=== PATIENT | female | born 1965 | race African-American/Black ===

== ENCOUNTER 2017-06-16 10:35 | Emergency (ER) | payer OTHER, MEDICAID ==
[~2017-06-16] VITALS: Ht 162.6 cm; Wt 49.1 kg
[~2017-06-16 10:35] MED LIST: ACET650T10 PR; ADAL30TA10 PO; ASPI81 PO; BACL20TA PO; CEFT1INJ IM; CYCL-36 PO; DIAZ5 PO; ENDO5TAB6 PO; FOLI1TAB PO; LORT7.5T3 PO; METH2.5 PO; METO50TA PO; PROC60TA PO; RANI150 PO; ROSU20 PO; STOO100C PO; VANC1CAP7 IV; ZOCO40TA PO
[2017-06-16 11:14] VITALS: BP 144/77; PULSE 87; RESP 16; TEMP 98.1; O2SAT 96
[2017-06-16 11:53] LABS: AUTOMATED NEUTROPHIL # 3.5 TH/MM3 (1.8-7.7); BASOPHIL % 0.4 % (0.0-2.0); EOSINOPHIL % 0.7 % (0.0-4.0); HEMATOCRIT 30.9 % (35.0-46.0); HEMOGLOBIN 10.2 GM/DL (11.6-15.3); LYMPH % 16.9 % (9.0-44.0); LYMPHOCYTE # 0.8 TH/MM3 (1.0-4.8); MEAN CELL VOLUME 91.3 FL (80.0-100.0); MEAN CORPUSCULAR HGB CONC 32.8 % (32.0-36.0); MEAN PLATELET VOLUME 10.1 FL (7.0-11.0); MONO % 7.5 % (0.0-8.0); MONOCYTE # 0.4 TH/MM3 (0-0.9); NEUT % 74.5 % (16.0-70.0); PLATELET COUNT 160 TH/MM3 (150-450); RED BLOOD COUNT 3.38 MIL/MM3 (4.00-5.30); RED CELL DISTRIBUTION WIDTH 14.5 % (11.6-17.2); WHITE BLOOD COUNT 4.7 TH/MM3 (4.0-11.0)
--- NOTE | 2017-06-16 12:00 | PD ---
HPI Chief Complaint: Medical Clearance Time Seen by Provider: 11:42 Travel History International Travel<30 days: No Contact w/Intl Traveler<30days: No Traveled to known affect area: No History of Present Illness HPI The patient is a 51-year-old after [place] female who presents emergency department for palpitations. The patient states they recently increased her Zoloft from 25 mg to 50 mg. She now complains of mild nausea with palpitations. The patient states she had palpitations on Friday, is currently asymptomatic. She does note a history of previous drug to drug interaction with an elevated heart rate requiring IV medications to slow her heart rate. She does have a history of lupus and scleroderma for which she takes Procardia. She denies any current chest pain or shortness of breath. The patient is currently under stress, is due to go to court today at 1:30 PM, her symptoms may be related. She denies any current nausea, vomiting, or abdominal pain today. PFSH Past Medical History Arthritis: Yes Asthma: No Autoimmune Disease: Yes (SCLERODERMA, REYNAUDS, LUPUS) Blood Disorders: No Anxiety: Yes Depression: Yes Heart Rhythm Problems: No Cancer: No Cardiovascular Problems: Yes Cerebral Palsy: Yes High Cholesterol: No Chemotherapy: No Chest Pain: No Congestive Heart Failure: No COPD: No Cerebrovascular Accident: No Diabetes: No Diminished Hearing: No Endocrine: No GERD: No Glaucoma: No Genitourinary: No Headaches: No Hepatitis: No Hiatal Hernia: No Hypertension: No Immune Disorder: Yes Kidney Stones: No Musculoskeletal: Yes Neurologic: No Psychiatric: Yes Reproductive: No Respiratory: No Integumentary: Yes (SCLERDERMA) Migraines: No Myocardial Infarction: No Radiation Therapy: No Renal Failure: No Seizures: No Sickle Cell Disease: No Sleep Apnea: No Thyroid Disease: No Ulcer: No Past Surgical History Abdominal Surgery: No AICD: No Appendectomy: No Arteriovenous Shunt: No Cardiac Surgery: No Cholecystectomy: No Ear Surgery: No Endocrine Surgery: No Eye Surgery: No Genitourinary Surgery: No Gynecologic Surgery: No Insulin Pump: No Joint Replacement: No Oral Surgery: No Pacemaker: No Thoracic Surgery: No Other Surgery: Yes Social History Alcohol Use: No Tobacco Use: No Substance Use: No Allergies-Medications (Allergen,Severity, Reaction): Coded Allergies: No Known Allergies (Verified Adverse Reaction, Unknown, 06/16/17) Reported Meds & Prescriptions Reported Meds & Active Scripts Active Reported Tylenol (Acetaminophen) 650 Mg Supp 650 Mg DC Q6HPRN Zocor (Simvastatin) 40 Mg Tab 40 Mg PO HS Flexeril (Cyclobenzaprine HCl) 10 Mg Tab 10 Mg PO TID Lopressor (Metoprolol Tartrate) 50 Mg Tab 50 Mg PO BID Colace (Docusate Sodium) 100 Mg Cap 100 Mg PO BID Vancomycin Hcl (Vancomycin HCl) 250 Mg Cap 1 Gm IV BID Rocephin 1000 MG (Ceftriaxone Sodium) 1,000 Mg Inj 1,000 Mg IM DAILY Endocet (Oxycodone/Acetaminophen) 5 Mg/325 Mg Tab 1 Tab PO Q4HPRN Lortab 7.5/500 (Acetaminophen/Hydrocodone Bitart) Tab 1 Tab PO Q6HPRN FOR PAIN Aspirin 81 Mg Tab 81 Mg PO DAILY Valium (Diazepam) 5 Mg Tab 5 Mg PO DAILY Adalat Cc (Nifedipine) 30 Mg Tab 30 Mg PO DAILY Lioresal (Baclofen) 20 Mg Tab 20 Mg PO BID Zantac (Ranitidine HCl) 150 Mg Tab 150 Mg PO BID Rheumatrex (Methotrexate) 2.5 Mg Tab 10 Mg PO WEEKLY Crestor (Rosuvastatin Calcium) 20 Mg Tab 20 Mg PO DAILY Folate (Folic Acid) 1 Mg Tab 1 Mg PO DAILY Procardia Xl (Nifedipine) 60 Mg Tabcr 60 Mg PO DAILY Review of Systems Except as stated in HPI: all other systems reviewed are Neg General / Constitutional: No: Fever HENT: No: Lightheadedness Cardiovascular: Positive: Palpitations, Tachycardia, No: Chest Pain or Discomfort, Syncope Respiratory: No: Shortness of Breath Gastrointestinal: Positive: Nausea (several days ago which has resolved), No: Vomiting, Abdominal Pain Musculoskeletal: No: Weakness Psychiatric: Positive: Anxiety Physical Exam Narrative GENERAL: Awake, alert, pleasant 51-year-old female who appears her stated age and is in no acute respiratory distress. SKIN: Focused skin assessment warm/dry. HEAD: Atraumatic. Normocephalic. EYES: No injection or drainage. ENT: No nasal bleeding or discharge. Mucous membranes pink and moist. NECK: Trachea midline. No JVD. CARDIOVASCULAR: Regular rate and rhythm. No murmur appreciated. Heart rate in the 80s. RESPIRATORY: No accessory muscle use. Clear to auscultation. Breath sounds equal bilaterally. GASTROINTESTINAL: Abdomen soft, non-tender, nondistended. Hepatic and splenic margins not palpable. MUSCULOSKELETAL: Partial amputations of the digit of the right hand. NEUROLOGICAL: Awake and alert. No obvious cranial nerve deficits. Motor grossly within normal limits. Normal speech. PSYCHIATRIC: Appropriate mood and affect; insight and judgment normal. Data Data Last Documented VS Vital Signs Date Time Temp Pulse Resp B/P (MAP) Pulse Ox O2 Delivery O2 Flow Rate FiO2 06/16/17 12:07 72 22 169/100 (123) 100 Room Air 06/16/17 11:14 98.1 Orders Orders Complete Blood Count With Diff (06/16/17 11:17) Comprehensive Metabolic Panel (06/16/17 11:17) Lipase (06/16/17 11:17) Electrocardiogram (06/16/17 ) Magnesium (Mg) (06/16/17 11:51) Summer Internship / Telemetry [id number] (06/16/17 11:51) Labs Laboratory Tests Test 06/16/17 11:25 White Blood Count 4.7 TH/MM3 Red Blood Count 3.38 MIL/MM3 Hemoglobin 10.2 GM/DL Hematocrit 30.9 % Mean Corpuscular Volume 91.3 FL Mean Corpuscular Hemoglobin 30.0 PG Mean Corpuscular Hemoglobin Concent 32.8 % Red Cell Distribution Width 14.5 % Platelet Count 160 TH/MM3 Mean Platelet Volume 10.1 FL Neutrophils (%) (Auto) 74.5 % Lymphocytes (%) (Auto) 16.9 % Monocytes (%) (Auto) 7.5 % Eosinophils (%) (Auto) 0.7 % Basophils (%) (Auto) 0.4 % Neutrophils # (Auto) 3.5 TH/MM3 Lymphocytes # (Auto) 0.8 TH/MM3 Monocytes # (Auto) 0.4 TH/MM3 Eosinophils # (Auto) 0.0 TH/MM3 Basophils # (Auto) 0.0 TH/MM3 CBC Comment DIFF FINAL Differential Comment Blood Urea Nitrogen 21 MG/DL Creatinine 1.04 MG/DL Random Glucose 79 MG/DL Total Protein 8.8 GM/DL Albumin 4.2 GM/DL Calcium Level 8.9 MG/DL Alkaline Phosphatase 65 U/L Aspartate Amino Transf (AST/SGOT) 17 U/L Alanine Aminotransferase (ALT/SGPT) 20 U/L Total Bilirubin 0.2 MG/DL Sodium Level 143 MEQ/L Potassium Level 3.6 MEQ/L Chloride Level 113 MEQ/L Carbon Dioxide Level 21.4 MEQ/L Anion Gap 9 MEQ/L Estimat Glomerular Filtration Rate 68 ML/MIN Magnesium Level 2.0 MG/DL Lipase 97 U/L [facility] Medical Decision Making Medical Screen Exam Complete: Yes Emergency Medical Condition: Yes Medical Record Reviewed: Yes Interpretation(s) EKG reveals normal sinus rhythm with a rate of 71. No ischemic changes or ectopy noted. Laboratory Tests Test 06/16/17 11:25 White Blood Count 4.7 TH/MM3 Red Blood Count 3.38 MIL/MM3 Hemoglobin 10.2 GM/DL Hematocrit 30.9 % Mean Corpuscular Volume 91.3 FL Mean Corpuscular Hemoglobin 30.0 PG Mean Corpuscular Hemoglobin Concent 32.8 % Red Cell Distribution Width 14.5 % Platelet Count 160 TH/MM3 Mean Platelet Volume 10.1 FL Neutrophils (%) (Auto) 74.5 % Lymphocytes (%) (Auto) 16.9 % Monocytes (%) (Auto) 7.5 % Eosinophils (%) (Auto) 0.7 % Basophils (%) (Auto) 0.4 % Neutrophils # (Auto) 3.5 TH/MM3 Lymphocytes # (Auto) 0.8 TH/MM3 Monocytes # (Auto) 0.4 TH/MM3 Eosinophils # (Auto) 0.0 TH/MM3 Basophils # (Auto) 0.0 TH/MM3 CBC Comment DIFF FINAL Differential Comment Blood Urea Nitrogen 21 MG/DL Creatinine 1.04 MG/DL Random Glucose 79 MG/DL Total Protein 8.8 GM/DL Albumin 4.2 GM/DL Calcium Level 8.9 MG/DL Alkaline Phosphatase 65 U/L Aspartate Amino Transf (AST/SGOT) 17 U/L Alanine Aminotransferase (ALT/SGPT) 20 U/L Total Bilirubin 0.2 MG/DL Sodium Level 143 MEQ/L Potassium Level 3.6 MEQ/L Chloride Level 113 MEQ/L Carbon Dioxide Level 21.4 MEQ/L Anion Gap 9 MEQ/L Estimat Glomerular Filtration Rate 68 ML/MIN Magnesium Level 2.0 MG/DL Lipase 97 U/L Differential Diagnosis Differential diagnosis includes arrhythmia, electrolyte abnormality, aortic stenosis, palpitations, drug drug interaction, anxiety, stress reaction. Narrative Course IV was established, labs are drawn and sent, and the patient was placed on cardiac telemetry monitoring and continuous pulse oximetry monitoring. EKG was ordered and interpreted. Electrolytes including magnesium level were sent to lab. The patient was monitored on telemetry monitoring. Labs are unremarkable , magnesium and potassium are normal. Patient was monitored on telemetry monitoring for 2 hours, no evidence of ectopy. The patient is advised to follow -up with her primary physician, she will be provided a copy of her EKG and labs at discharge. She is advised to return if symptoms worsen or progress. Diagnosis Primary Impression: Palpitations Patient Instructions: General Instructions Additional Instructions: Please provide the patient a copy of her EKG results and lab results at discharge. Follow-up with your primary physician. Excuse today for Court. Return if symptoms worsen or progress. Med/Other Pt SpecificInfo: No Change to Meds Disposition: 01 DISCHARGE HOME Condition: Stable Bunny Heller MD Jun 16, 2017 11:59
[2017-06-16 12:07] VITALS: BP 169/100; PULSE 72; RESP 22; O2SAT 100
[2017-06-16 12:12] LABS: ALBUMIN 4.2 GM/DL (3.4-5.0); ALT (GPT) 20 U/L (10-53); AST (GOT) 17 U/L (15-37); BICARBONATE 21.4 MEQ/L (21.0-32.0); BLOOD UREA NITROGEN 21 MG/DL (7-18); CALCIUM 8.9 MG/DL (8.5-10.1); CHLORIDE 113 MEQ/L (98-107); CREATININE 1.04 MG/DL (0.50-1.00); GLOMERULAR FILTRATION RATE 68 ML/MIN (>89); GLUCOSE,RANDOM 79 MG/DL (74-106); SODIUM (NA) 143 MEQ/L (136-145)
[2017-06-16 12:13] LABS: ALKALINE PHOSPHATASE 65 U/L (45-117); TOTAL BILIRUBIN ADULT 0.2 MG/DL (0.2-1.0); TOTAL PROTEIN 8.8 GM/DL (6.4-8.2)
[2017-06-16 13:00] VITALS: BP 180/108; PULSE 76; RESP 20; O2SAT 100
[2017-06-16 13:30] VITALS: BP 204/98; PULSE 70; RESP 18; O2SAT 100
--- NOTE | 2017-06-17 18:52 | EKG ---
Date Performed: 06/16/2017 Time Performed: 12:19:18 PTAGE: 51 years EKG: Sinus rhythm POSSIBLE RIGHT VENTRICULAR CONDUCTION DELAY BORDERLINE ECG Since the prior tracing, there has been n o significant change PREVIOUS TRACING : 08/06/1999 17.02 DOCTOR: Cristo Goodman Interpretating Date/Time 06/17/2017 18:49:34
== END 2017-06-16 14:06 | disposition home or self-care (01) ==
LOC: NEPD 10:35
DX: R00.2 Palpitations (principal); R94.31 Abnormal electrocardiogram [ECG] [EKG]; M19.90 Unspecified osteoarthritis, unspecified site; F32.9 Major depressive disorder, single episode, unspecified
CPT/HCPCS: 80053; 83690; 83735; 85025; 93005; 99284